=== PATIENT | male | born 2000 ===

== ENCOUNTER 2020-06-03 15:13 | Emergency (ER) | payer OTHER, SELFPAY ==
[2020-06-03 15:28] VITALS: BP 151/86; PULSE 87; RESP 16; TEMP 36.8; O2SAT 98; BMI 42.5
[2020-06-03 15:44] VITALS: RESP 18
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
== END 2020-06-03 16:24 | disposition home or self-care (01) ==
PROVIDERS: Emergency Provider Nurse Practitioner Family; PCP Family Medicine
DX: Z04.1 Encounter for examination and observation following transport accident (principal); V59.40XA Driver of pick-up truck or van injured in collision with unspecified motor vehicles in traffic accident, initial encounter
CPT/HCPCS: 12345; 70450; 99281; 99282

== ENCOUNTER → 2020-10-26 14:34 | Outpatient (BNVA) | payer OTHER, SELFPAY | PROVIDERS: PCP Family Medicine; Visit Provider Nurse Practitioner Family | DX: Z20.828 Contact with and (suspected) exposure to other viral communicable diseases (principal) | CPT/HCPCS: 87635 ==

== ENCOUNTER 2025-10-03 03:36 | Emergency (ER) | payer BC, SELFPAY ==
[2025-10-03] VITALS (7 sets, daily range): BP systolic 142–167; BP diastolic 53–91; PULSE 75–116; RESP 17–20; TEMP 37.6; O2SAT 96–99; BMI 45.4
--- OUTSIDE RECORDS SUMMARY | 2025-10-03 03:48 | XMS_ITS | Clinical Summary ---
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 Gender Identity Not on file Sexual Orientation Not on file Last Filed Vital Signs Vital Sign Reading Time Taken Comments Blood Pressure 125/70 08/16/2020 4:13 PM CDT Pulse 87 08/16/2020 4:13 PM CDT Temperature 36.5 C (97.7 F) 08/16/2020 4:13 PM CDT Respiratory Rate - - Oxygen Saturation - - Inhaled Oxygen Concentration - - Weight 163.3 kg (360 lb) 08/16/2020 4:13 PM CDT Height 200.7 cm (6' 7 ) 08/16/2020 4:13 PM CDT Body Mass Index 40.56 08/16/2020 4:13 PM CDT Plan of Treatment Health Maintenance Due Date Last Done Comments HPV VACCINES (1 - Male 3-dose series) 2014 DTAP/TDAP/TD VACCINES (1 - Tdap) 2018 HEPATITIS B VACCINES (1 of 3 - 19+ 3-dose series) 02/2018 INFLUENZA VACCINE (#1) 2025
--- OUTSIDE RECORDS SUMMARY | 2025-10-03 03:48 | XMS_ITS | Clinical Summary ---
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 Name Role Phone Unavailable Primary Care Provider Unavailabl e Allergies No known active allergies Medications No known medications Active Problems No known active problems Social History Tobacco Use Types Packs/Day Years Used Date Smoking Tobacco: Never Smokeless Tobacco: Current Chew Alcohol Use Standard Drinks/Week Comments Yes 0 (1 standard drink = 0.6 oz pur e alcohol) Sex and Gender Information Value Date Recorded Sex Assigned at Not on file Legal Sex Male 3:05 PM CDT Gender Identity Not on file Sexual Orientation Not on file Last Filed Vital Signs Vital Sign Reading Time Taken Comments Blood Pressure 125/70 08/16/2020 4:13 PM CDT Pulse 87 08/16/2020 4:13 PM CDT Temperature 36.5 C (97.7 F) 08/16/2020 4:13 PM CDT Respiratory Rate - - Oxygen Saturation 96% 08/16/2020 4:13 PM CDT Inhaled Oxygen Concentration - - Weight 163.3 [...] 3-dose series) 02/2018 INFLUENZA VACCINE (#1) 2025 Insurance GENERIC AETNA
--- OUTSIDE RECORDS SUMMARY | 2025-10-03 03:48 | XMS_ITS | Patient Health Record ---
Author Organization [facility] Address [address] [place] [address] Support Name Relationship Address Phone ASTRID COBURN Guarantor Unknown [phone] Reason For Referral No Information Medications Medication SIG (Take, Route, Frequency, Duration) Notes Start Date End Date Status Medications Reconciled *please review for potential update for e-prescription and drug interaction check* Not-Taking Social History Social History Additional Details Category Social Info Options Details Migrated Social History Migrated Social History Tobacco Use, AttributeTitle: Uses chewing tobacco, ProblemStatus: Active Problems Problem Type SNOMED Code ICD Code Onset Dates Problem Status W/U Status Risk Notes Problem Counseling (919956232) ENCOUNTER FOR EDUCATION (Z71.9) Inactive confirmed Problem Sprain of ankle (06998521) SPRAIN OF LEFT ANKLE, INITIAL ENCOUNTER (S93.402A) Inactive confirmed Problem Arthralgia of the ankle and/or foot (009080625) LEFT ANKLE PAIN (M25.572) Inactive confirmed Plan Of Treatment No Information
--- OUTSIDE RECORDS SUMMARY | 2025-10-03 03:48 | XMS_ITS | Data Portability ---
Author Organization [facility] Address [address] [facility] [address] [place] [address] Assessment Encounter Date Assessment Date Assessment LastModified by Organization Details LastModified Time 07/01/2024 07/01/2024 We Discussed the risks and benefits of a vasectomy. We discussed the importance of bringing a semen sample 3 months after the vasectomy and using an alternate form of control until then. We reviewed the vasectomy consent form and discussed it. He had no further questions and wishes to schedule a vasectomy. Not available 07/06/2024 12:44:55 07/17/2024 07/17/2024 .We reviewed his handout. He had no further questions. Not available 07/18/2024 07:45:18 Plan of Treatment Reminders Order Date Submit Date Provider Last Modified By Organization Details Last Modified Time Details Appointments None recorded. Lab semen analysis (post vasectomy) 2023 024 [facility] ([facility] [address] [place] [address], [phone], 09:45:02 Referral None recorded. Procedures vasectomy (PROC) [address], [address] [place] [address], [address], 16:02:28 vasectomy (PROC) [address], [address], [address], [place], [address], 14:42:18 Surgeries None recorded. Imaging None recorded. Medication Orders Valium 10 mg tablet 2023 [facility], [address], [place], [address], 16:30:20 Percocet 5 mg-325 mg tablet 2023 [facility], [address], [place], [address], 16:30:21 Patient TargetsNo targets recorded. Patient InstructionsNo instructions recorded. Reason for Referral None Reported. Results Created Date Observation Date Name Description Value Unit Range Abnormal Flag Note LastModifiedBy Organization Detail LastModifiedTime 08/14/20 24 08/14/2024 semen shayy sis (post vasec sherman) Motile Sperm Not Seen Not Available [facility] ([facility]) [address] [place], [address], 08/14/2024 09:43:59 Result Notes None recorded. Problems Name Problem SNOMED Code Status Onset Date Resolution Date Notes Provider Name and Address Organization Details Recorded Time Vasectomy requested 979936264 Active OMAR zurita [facility] 14:14:49 Problem Notes None recorded. Procedures Surgical History Date Name Laterality Status Provider Name and Address Organization Details Recorded Time jr vasectomy completed Pietro Diaz MD [address] [place], [address], [facility] 07/17/2024 16:53:41 Imaging Results None recorded. Procedure Notes None recorded. Medical Equipment None Reported. Allergies No known drug allergies Medications Name Sig Start Date Stop Date Status Note LastModified by Organization Details LastModified Time oxycodone- acetaminop hen 5 mg-325 mg tablet TAKE 1 TABLET BY MOUTH NEEDED 1 HOUR PRIOR TO PROCEDURE active Not Available Not Available No t Available diazepam 10 mg tablet TAKE 1 TABLET BY MOUTH NEEDED active Not Available Not Available No t Available Vitals Date Recorded Body height Body mass index (BMI) Body weight Oxygen saturation Heart rate Respiratory rate Body temperature Systolic And Diastolic Provider Name and Address Organization Details Last Updated DateTime 4 200.66 cm 44.9 kg/m2 529432. 86 g 96 % 81 /min 20 /min 98.9 [degF] 140/80 mm[Hg] BRADY MCMULLEN [facility] 4 15:58:22 Date Recorded Body height Body mass index (BMI) Body weight Oxygen saturation Heart rate Respiratory rate Body temperature Systolic And Diastolic Provider Name and Address Organization Details Last Updated DateTime 4 200.66 cm 45.2 kg/m2 926707. 54 g 98 % 89 /min 20 /min 98.8 [degF] 130/72 mm[Hg] BRADY MCMULLEN [facility] 4 16:25:33 Social History Question Answer Notes LastModified by Organizat ion Details LastModified Time Tobacco Smoking Status Never Smoker [facility] 07/01/2024 15:55:54 How Many Children Do You Have? 2 Information not available 07/01/2024 What Is Your Relationship Status? Information not available 07/01/2024 Are You Sexually Active? Yes Information not available 07/01/2024 Sex: Unknown Functional Status Question Answer Note LastModified by Organizat ion Details LastModified Time Do you use any illicit or recreational drugs? No Information not available 07/01/2024 What is your level of alcohol consumption? None Information not available 07/01/2024 Are you able to care for yourself independently? Yes Information not available 07/01/2024 Mental Status None recorded. Family History Relationship Description Onset Age of this Age Resolved Age Notes LastModified by Organization Details LastModified Time Father Hypertensive disorder tneuschwander Not available 15:54:55 Father Diabetes mellitus tneuschwander Not available 15:55:09 Father Heart disease tneuschwander Not available 15:55:25 Paternal Grandfather Hypertensive disorder tneuschwander Not available 15:54:55 Paternal Grandfather Heart disease tneuschwander Not available 15:55:25 Paternal Grandfather Cerebrovascu lar accident tneuschwander Not available 07/01/2024 15:55:40 Medical History No medical history recorded. Immunizations Vaccine Type Date Status Note Provider Nam e and Address Organization Details Recorded Time Hep B, unspecified formulation 1999 [facility] 07/01/2024 15:54:22 Past Encounters Encounter ID Performer Location Encounter Start Date Encounter Closed Date Diagnosis/Indication Diagnosis SNOMED-CT Code Diagnosis ICD10 Code Diagnosis IMO Codes Diagnosis Note [id number] Pietro Diaz MD [facility] ([facility]) [address] [place] [phone] 07/01/2024 15:40:07 07/01/2024 16:41:35 Vasectomy requested 662505192 Z30.2 [id number] Pietro Diaz MD [facility]) [address] [place] [phone] 07/17/2024 16:18:18 07/17/2024 17:46:55 Vasectomy requested 425736841 Z30.2 [id number] Pietro Diaz MD [facility]) [address] [place] [phone] 08/14/2024 09:42:29 08/17/2024 10:13:13 Vasectomy requested 901033367 Z30.2 Health Concerns Section Related Observation LastModified by Organization Detai ls LastModified Time None Recorded Concern Status LastModified by Organization Details LastModified Time None Recorded Advance Directives Directive None Recorded Payers Insurance Date Sequence Insurance Name Policy Number Policy Vasques Covered Member ID Vasques Member ID Guarantor Name 03/15/2025 1 [place] [id number] 2 Gabriele Box [id number] Gabriele Box 08/14/2024 2 [facility] (O) [id number] Jemma Box [id number] Gabriele Box Notes Date Note Type Note Provider Name and Address Organization Details Recorded Time 07/01/2024 text/html Pt is requesting vasectomy Pietro Diaz MD [address] [place] [address], [phone], [facility] 07/06/2024 12:45:28 07/17/2024 text/html pt is here for a vasectomy Pietro Diaz MD [address] [place] [address], [phone], [facility] 07/18/2024 07:46:04
--- NOTE | 2025-10-03 04:22 | ECG_ITS ---
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 Measurements Intervals Halliday Rate: 104 P: 31 KS: 116 QRS: 61 QRSD: 107 T: 51 QT: 332 QTc: 438 Interpretive Statements SINUS TACHYCARDIA WITH SHORT KS INTERVAL POSSIBLE LATERAL MYOCARDIAL INFARCTION , PROBABLY OLD [30 ms Q WAVE IN I/aVL/V5/V6] POSSIBLE INFERIOR INFARCTION, PROBABLY OLD ABNORMAL ECG No previous ECG available for comparison Electronically Signed On 10-03-2025 16:55:47 CERTIFIED SOLID WASTE FACILITY OPERATOR by Chucho Castillo M.D. [email or web address]
--- NOTE | 2025-10-03 04:23 | W.ED.FEVER ---
HPI - Fever General: Chief Complaint: Fever Stated Complaint: rectal bleeding chills, n/v Time Seen by Provider: 10/03/25 03:59 History of Present Illness: 25-year-old male patient with multiple symptoms. He states that he had headache for the last 5 days. He gets headaches not infrequently. This evening, he began to get chills, and a measured fever. He got in a hot shower, and began to vomit. He had multiple episodes of vomiting, with diarrhea as well. He is experiencing some epigastric pain and tenderness. He denies significant cough. Related Data Previous Rx's ?Medication ?Instructions ?Recorded ondansetron 4 mg disintegrating 4 mg PO Q6H PRN nausea and 10/03/25 tablet vomiting #14 tabs Allergies Allergy/AdvReac Type Severity Reaction Status Date / Time No Known Allergies Allergy Verified 10/03/25 04:08 [facility] ED PFSH: Social History Smoking and tobacco/nicotine status: never used tobacco/nicotine Physical Exam Const: COMMON NORMALS: no acute distress GENERAL APPEARANCE: cooperative and ill appearing (Mildly); not frail appearing HENMT: COMMON NORMALS: normocephalic, atraumatic and Normal external nose present HEAD & SCALP: normocephalic and atraumatic FACE & SINUS: normal facial exam and face symmetric NOSE: Normal external nose present Eye: COMMON NORMALS: Equal, round and reactive pupils present and EOMs intact bilaterally PUPIL: Yes Equal, round and reactive pupils present Neck/C-Spine: GENERAL: Yes trachea midline Chest: CHEST: Yes Symmetrical chest wall rise Resp: COMMON NORMALS: normal respiratory effort, No retractions, No use of accessory muscles and clear to auscultation bilaterally AUSCULTATION: clear to auscultation bilaterally Cardio: COMMON NORMALS: regular rate and regular rhythm RATE: regular rate RHYTHM: regular rhythm GI: COMMON NORMALS: Normal to inspection, nondistended, normoactive bowel sounds present PALPATION: Yes Tenderness to palpation present (GI) (Epigastric) and No Guarding due to palpation present (GI) Extremity: COMMON NORMALS: no pedal edema Neuro: CIERRA COMA SCALE: document GCS findings Cierra coma scale eye opening: Spontaneous Cierra coma scale verbal response: Orientated Cierra coma scale motor response: Obey commands Cierra coma scale total score: 15 SENSORY EXAM: Yes extremities (intact) Psych: COMMON NORMALS: speech normal SPEECH: Yes normal speech Skin: COMMON NORMALS: no rashes or lesions noted GENERAL SKIN EXAM: no rashes or lesions noted Course Vital Signs: Vital signs: Vital Signs Temperature 99.6 F 10/03/25 03:59 Pulse Rate 92 10/03/25 06:29 Respiratory Rate 17 10/03/25 06:29 Blood Pressure 142/53 10/03/25 06:29 Pulse Oximetry 97 10/03/25 06:29 MDM - Fever Medical Decision Making 25-year-old male with some abdominal pain, vomiting, fever. Temperature is 99.6 here. He is initially tachycardic. His white blood cell count is 16. Swabs for RSV COVID and flu were negative. Urinalysis is negative. CRP is 20. Lipase is normal. Lactic acid is 1.5. Liver enzymes are not remarkable. CT shows no acute findings. Appears to be a viral gastroenteritis. Symptomatic treatment. Liquid diet. Return for worsening symptoms. Stable for discharge. Lab Data 10/03/25 04:35 10/03/25 04:35 Radiology Impressions Abdomen/Pelvis CT 10/03/25 05:08 IMPRESSION: No acute findings. Laboratory Results WBC 16.22 10^3/uL (3.29-11.43) H 10/03/25 04:35 RBC 4.94 10^6/uL (3.85-5.65) 10/03/25 04:35 Hgb 14.20 g/dL (11.27-16.99) 10/03/25 04:35 Hct 41.7 % (37-53) 10/03/25 04:35 MCV 84.4 fl (82-101) 10/03/25 04:35 MCH 28.7 pg (27-33) 10/03/25 04:35 MCHC 34.1 g/dL (30-55) 10/03/25 04:35 RDW 12.6 % (12.1-15.1) 10/03/25 04:35 Plt Count 322 10^3/cmm (157-399) 10/03/25 04:35 MPV 9.2 fL (7.4-10.4) 10/03/25 04:35 Neut % (Auto) 88.9 % 10/03/25 04:35 Lymph % (Auto) 3.5 % 10/03/25 04:35 [place] % (Auto) 6.3 % 10/03/25 04:35 Eos % (Auto) 0.2 % 10/03/25 04:35 Baso % (Auto) 0.4 % 10/03/25 04:35 Neut # (Auto) 14.42 10^3/uL (1.8-7.7) H 10/03/25 04:35 Lymph # (Auto) 0.6 10^3/uL (0.8-4.8) L 10/03/25 04:35 [place] # (Auto) 1.0 10^3/uL (0.2-0.9) H 10/03/25 04:35 Eos # (Auto) 0.0 10^3/uL (0.0-0.8) 10/03/25 04:35 Baso # (Auto) 0.1 10^3/uL (0.0-0.1) 10/03/25 04:35 Nucleated RBC % (auto) 0 % 10/03/25 04:35 Nucleated RBCs # 0.0 /100WBC 10/03/25 04:35 Sodium 139 mmol/L (136-145) 10/03/25 04:35 Potassium 3.9 mmol/L (3.5-5.1) 10/03/25 04:35 Chloride 101 mmol/L (98-107) 10/03/25 04:35 Carbon Dioxide 27 mmol/L (22-29) 10/03/25 04:35 Anion Gap 14.9 (5-19) 10/03/25 04:35 BUN 13 mg/dL (6-20) 10/03/25 04:35 Creatinine 1.0 mg/dL (0.7-1.2) 10/03/25 04:35 GFR Calculation 90.3 mL/min (90-130) 10/03/25 04:35 Glucose 107 mg/dL (65-115) 10/03/25 04:35 Calculated Osmolality 289 mOsm/kg (285-295) 10/03/25 04:35 Lactic Acid 1.5 mmol/L (0.5-2.2) 10/03/25 04:35 Calcium 9.5 mg/dL (8.5-10.5) 10/03/25 04:35 Total Bilirubin 0.7 mg/dL (0.15-1.2) 10/03/25 04:35 AST 44 U/L (0-40) H 10/03/25 04:35 ALT 64 U/L (0-41) H 10/03/25 04:35 Alkaline Phosphatase 83 U/L (40-130) 10/03/25 04:35 C-Reactive Protein 21.1 mg/L (0.0-4.9) H 10/03/25 04:35 Total Protein 7.9 g/dL (6.6-8.7) 10/03/25 04:35 Albumin 4.5 g/dL (3.5-5.2) 10/03/25 04:35 Globulin 3.4 g/dL (1.3-4.6) 10/03/25 04:35 Lipase 34 U/L (13-60) 10/03/25 04:35 Urine Color Yellow (Yellow) 10/03/25 05:42 Urine Appearance Clear (CLEAR) 10/03/25 05:42 Urine pH 6.5 (5-7) 10/03/25 05:42 Ur Specific Kirby 1.023 (1.005-1.030) 10/03/25 05:42 Urine Protein Negative (Negative) 10/03/25 05:42 Urine Glucose (UA) Negative (Normal) 10/03/25 05:42 Urine Ketones Negative (Negative) 10/03/25 05:42 Urine Blood Negative (Negative) 10/03/25 05:42 Urine Nitrate Negative (Negative) 10/03/25 05:42 Urine Bilirubin Negative (Negative) 10/03/25 05:42 Urine Urobilinogen 1.0 mg/dL (Negative) 10/03/25 05:42 Ur Leukocyte Esterase Negative (Negative) 10/03/25 05:42 Urine RBC 0-2 /hpf (0-2) 10/03/25 05:42 Urine WBC 0-5 /hpf (0-5) 10/03/25 05:42 Ur Squamous Epith Cells 0-5 /hpf (0-5) 10/03/25 05:42 Amorphous Sediment Not Reportable 10/03/25 05:42 Urine Bacteria None seen /hpf (NONE) 10/03/25 05:42 Hyaline Casts 0-4 /lpf H 10/03/25 05:42 Influenza A (PCR) Negative (Negative) 10/03/25 04:44 Influenza Type B (PCR) Negative (Negative) 10/03/25 04:44 RSV (PCR) Negative (Negative) 10/03/25 04:44 SARS-CoV-2 (PCR) Negative (Negative) 10/03/25 04:44 All radiology interpretation(s) finalized by discharge Discharge Plan Discharge Patient Disposition: Home Clinical Impression: Gastroenteritis Condition: Stable Prescriptions: New ondansetron 4 mg tablet,disintegrating 4 mg PO Q6H PRN (Reason: nausea and vomiting) Qty: 14 0RF Discharge Orders: Discharge ED (Routine); Ordered 10/03/25 Ordered By: Satnam Burgos Referrals: Alex Crane MD [Primary Care Provider, [facility]] - 1-3 days Discharge Diet: Advance as tolerated Discharge Activity: Resume usual activity Patient Instructions: Gastroenteritis (ED), Patient Portal & Annie Instructions Activity Restrictions/Additional Instructions: Follow a liquid diet for the next 24 hours. Use nausea medication scheduled for the next 24 hours, then as needed following that. Return for any problems. Call your doctor tomorrow for follow-up appointment. Print Language: Costa Rican Coding Level of Care Code ED Intelligence Consultant for Paty Amor
[2025-10-03 04:58] LABS: Hematocrit 41.7 % (37-53); Hemoglobin 14.20 g/dL (11.27-16.99); Mean Corpuscular HGB Conc 34.1 g/dL (30-55); Mean Corpuscular Hemoglobin 28.7 pg (27-33); Mean Corpuscular Volume 84.4 fl (82-101); Nucleated Red Blood Cells % 0 %; Platelet Count 322 10^3/cmm (157-399); Red Blood Count 4.94 10^6/uL (3.85-5.65); White Blood Count 16.22 10^3/uL (3.29-11.43)
[2025-10-03] MEDS: morphine 4 mg/mL SDV 1 mL IVP (05:03)
[2025-10-03] MEDS: ondansetron 2 mg/ML SDV 2 mL 8 MG IVP (05:04)
--- NOTE | 2025-10-03 05:08 | CTR_ITS ---
PROCEDURE INFORMATION: Exam: CT Abdomen And Pelvis With Contrast Exam date and time: 10/03/2025 5:20 AM Age: 25 years old Clinical indication: Pain and abnormal findings; Abnormal lab test; Elevated wbc; Nausea and vomiting; Abdominal pain; Epigastric pain with n/v/d. Leukocytosis. ; Additional info: Epigastric abd pain TECHNIQUE: Imaging protocol: Computed tomography of the abdomen and pelvis with contrast. Radiation optimization: All CT scans at this facility use at least one of these dose optimization techniques: automated exposure control; mA and/or kV adjustment per patient size (includes targeted exams where dose is matched to clinical indication); or iterative reconstruction. Contrast material: OMNI 350; Contrast volume: 100 ml; Contrast route: INTRAVENOUS (IV); COMPARISON: No relevant prior studies available. RADIATION DOSE METRICS: Total DLP (mGy-cm): 1403.53 FINDINGS: Liver: Normal. No mass. Gallbladder and biliary ducts: Normal. No calcified stones. No ductal dilation. Pancreas: Normal. No ductal dilation. Spleen: Normal. No splenomegaly. Adrenal glands: Normal. No mass. Kidneys and ureters: Normal. No hydronephrosis. Stomach and bowel: Unremarkable. No obstruction. No mucosal thickening. Appendix: No evidence of appendicitis. Intraperitoneal space: Unremarkable. No free air. No significant fluid collection. Vasculature: Unremarkable. No abdominal aortic aneurysm. Lymph nodes: Unremarkable. No enlarged lymph nodes. Urinary bladder: Unremarkable as visualized. Reproductive: Unremarkable as visualized. Bones/joints: Unremarkable. No acute fracture. Soft tissues: Unremarkable. CT/CT abdomen pelvis w con* [id number] IMPRESSION: No acute findings.
[2025-10-03 05:20] LABS: Lactic Sepsis W/Reflex 1.5 mmol/L (0.5-2.2)
[2025-10-03 05:21] LABS: Alanine Aminotransferase 64 U/L (0-41); Albumin Level 4.5 g/dL (3.5-5.2); Alkaline Phosphatase 83 U/L (40-130); Anion Gap 14.9 (5-19); Aspartate Amino Transferase 44 U/L (0-40); Blood Urea Nitrogen 13 mg/dL (6-20); Calcium 9.5 mg/dL (8.5-10.5); Carbon Dioxide 27 mmol/L (22-29); Chloride 101 mmol/L (98-107); Globulin 3.4 g/dL (1.3-4.6); Glucose 107 mg/dL (65-115); Lipase 34 U/L (13-60); Osmolality Calculated 289 mOsm/kg (285-295); Potassium 3.9 mmol/L (3.5-5.1); Sodium 139 mmol/L (136-145); Total Protein 7.9 g/dL (6.6-8.7)
[2025-10-03] MEDS: iohexol 350 mg/mL 500 mL Btl (per mL) IV (05:24)
--- NOTE | 2025-10-03 05:31 | PC.NURSE ---
urinalysis needed patient given urinal he does not need to urinate at this time but reports that he will let us know once he is able to go
[2025-10-03 05:36] LABS: Respiratory Syncytial Virus Ce NEGATIVE (Negative); SARS-CoV-2 PCR NEGATIVE (Negative)
[2025-10-03 05:50] LABS: Glucose Urine UA Negative (Normal); Nitrate Urine Negative (Negative); Specific Gravity, Urine 1.023 (1.005-1.030)
[2025-10-03 05:55] LABS: Add Urine Microscopic? YES
== END 2025-10-03 06:32 | disposition home or self-care (01) ==
PROVIDERS: Emergency Provider Emergency Medicine; PCP Family Medicine
DX: K52.9 Noninfective gastroenteritis and colitis, unspecified (principal)
CPT/HCPCS: 74177; 80053; 81001; 83605; 83690; 85025; 86140; 87637; 93005; 96361; 96374; 96375; 99285; J1885; J2270; J2405; J7030